=== PATIENT | female | born 2005 | race Caucasian/White ===

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

== ENCOUNTER 2023-03-14 12:41 | Outpatient (CLI) | payer OTHER, MEDICAID, SELFPAY ==
--- NOTE | 2023-03-14 12:56 | US_ITS ---
WS: [id number] US pelv w/transvag [id number] HISTORY: IRREGULAR MENSTRUATION COMPARISON: None available. Uterus: 7.8 cm x 3.7 cm x 3.0 cm. Normal size anteverted uterus. No fibroid or mass. Endometrium: 0.8 cm. Right ovary: 3.4 cm x 1.9 cm x 2.8 cm. Normal size and vascularity, no cystic or solid masses. Tiana us small peripheral follicles, less than 20 per ovary. Left ovary: 3.5 cm x 3.4 cm x 2.7 cm. Normal size and vascularity, no cystic or solid masses. Numerou s small peripheral follicles, less than 20 per ovary. Dominant follicle measures 2.0 x 1.7 x 1.7 cm. No cystic or solid mass. No free fluid in the cul-de-sac. IMPRESSION: Normal pelvic ultrasound.
== END 2023-03-14 12:42 | disposition home or self-care (01) ==
PROVIDERS: PCP Family Medicine; Visit Provider Family Medicine
DX: N92.6 Irregular menstruation, unspecified (principal)
CPT/HCPCS: 76830; 76856

== ENCOUNTER → 2023-03-21 09:25 | Outpatient (BNVA) | payer OTHER, MEDICAID, SELFPAY | PROVIDERS: PCP Family Medicine; Referring Provider Family Medicine; Visit Provider Internal Medicine | DX: E05.90 Thyrotoxicosis, unspecified without thyrotoxic crisis or storm (principal); Z80.8 Family history of malignant neoplasm of other organs or systems; F41.9 Anxiety disorder, unspecified; E01.0 Iodine-deficiency related diffuse (endemic) goiter | CPT/HCPCS: 36415; 83516; 84439; 84443; 84480; 86376; 86800 ==

== ENCOUNTER 2023-04-16 11:46 | Outpatient (CLI) | payer OTHER, MEDICAID, SELFPAY ==
--- NOTE | 2023-04-16 12:00 | US_ITS ---
WS: [id number] THYROID ULTRASOUND HISTORY: goiter COMPARISON: None available. Right lobe: 1.7 cm x 1.0 cm x 5.2 cm (w x ap x l). Volume: 4.8 cm3. Normal size and echotexture. No significant are dominant nodules are present. Left lobe: 1.8 cm x 0.9 cm x 4.4 cm (w x ap x l). Volume: 4.0 cm3. Normal size and echotexture. No significant or dominant nodules are present. Isthmus: 0.2 cm. Minimally prominent lymph node in the region of the LEFT submandibular gland with normal fatty hilum. IMPRESSION: Normal thyroid ultrasound.
== END 2023-04-16 11:47 | disposition home or self-care (01) ==
LOC: RAD 11:46
PROVIDERS: PCP Family Medicine; Visit Provider Internal Medicine
DX: E01.0 Iodine-deficiency related diffuse (endemic) goiter (principal); E05.90 Thyrotoxicosis, unspecified without thyrotoxic crisis or storm
CPT/HCPCS: 76536

== ENCOUNTER → 2023-06-26 10:45 | Outpatient (BNVA) | payer MEDICAID, SELFPAY | PROVIDERS: PCP Family Medicine; Visit Provider Internal Medicine | DX: E05.90 Thyrotoxicosis, unspecified without thyrotoxic crisis or storm (principal); F41.9 Anxiety disorder, unspecified; E01.0 Iodine-deficiency related diffuse (endemic) goiter; Z80.8 Family history of malignant neoplasm of other organs or systems | CPT/HCPCS: 36415; 84439; 84443; 84480; 99214 ==

== ENCOUNTER → 2024-09-28 14:14 | Outpatient (BNVA) | payer SELFPAY | PROVIDERS: PCP Family Medicine; Visit Provider Nurse Practitioner Women's Health | DX: Z01.419 Encounter for gynecological examination (general) (routine) without abnormal findings (principal) | CPT/HCPCS: 80053; 82306; 83036; 83520; 85025; 86592; 86705; 86706; 86709; 86803; 87340; 87491; 87591; 87661; 87806; 88175 ==

== ENCOUNTER → 2025-01-07 09:23 | Outpatient (BNVA) | payer OTHER, SELFPAY | PROVIDERS: PCP Family Medicine; Visit Provider Nurse Practitioner Women's Health | DX: E05.90 Thyrotoxicosis, unspecified without thyrotoxic crisis or storm (principal) | CPT/HCPCS: 84439; 84443; 84480 ==

== ENCOUNTER → 2025-03-09 08:26 | Outpatient (BNVA) | payer OTHER, SELFPAY | PROVIDERS: PCP Family Medicine; Visit Provider Nurse Practitioner Women's Health | DX: E05.90 Thyrotoxicosis, unspecified without thyrotoxic crisis or storm (principal) | CPT/HCPCS: 84439; 84443; 84480 ==